=== PATIENT | female | born 1975 | race Caucasian/White ===

== ENCOUNTER 2018-08-06 06:15 | Day surgery (SDC) | payer BC ==
[~2018-08-06 06:15] MED LIST: Buffered Lidocaine 0.9% SYRIN* 5 ML/SYR SYRINGE INTRADERM ONE
[2018-08-06] MEDS ORDERED: Clindamycin 900 MG/D5W BAG(*) 900 MG/50 ML BAG IVPB ONE (06:39)
[2018-08-06] MEDS ORDERED: Lidocaine 2% PF * 5 ML VIAL ONE (07:02)
[2018-08-06] MEDS ORDERED: Bupivacaine 0.5% SDV PF* 30ML VIAL ONE (07:03)
[2018-08-06] MEDS ORDERED: Midazolam* 1 MG/ML 5 ML VIAL (5 MG) ONE (07:22)
[2018-08-06] MEDS ORDERED: fentaNYL* 50 MCG/ML 2 ML VIAL (100 MCG VIAL) ONE (07:34)
[2018-08-06] MEDS ORDERED: Midazolam* 1 MG/ML 2 ML VIAL (2 MG) ONE (07:45)
[2018-08-06] MEDS ORDERED: Propofol* 10 MG/ML 20 ML BTL IV PUSH ONE (07:59)
[2018-08-06] MEDS ORDERED: Dexamethasone IV* 4 MG/ML 1 ML (4 MG) ONE ×2 (07:59)
[2018-08-06] MEDS ORDERED: Naloxone* 0.4 MG/ML 1 ML VIAL IV PRN (08:13)
[2018-08-06] MEDS ORDERED: oxyCODONE/Acetamin 5/325 MG* TAB PO PRN (08:13)
[2018-08-06] MEDS ORDERED: fentaNYL* 50 MCG/ML 2 ML VIAL (100 MCG VIAL) IV PRN (08:13)
[2018-08-06 08:52] VITALS: BP 131/87
--- NOTE | 2018-08-06 09:13 | OP ---
Operative Report - Blank - Operative Report Date of Operation: 08/06/18 Note: PATIENT: Reyna Roper DATE OF : 1975 DATE OF SURGERY: 08/06/2018 SURGEON: Dov Cornell MD HAMMER ADJUSTER: GERRY Biswas, whos assistance was necessary for positioning, retraction, help with instrumentation, and closure. ANESTHESIOLOGIST: Dr. Hardin PREOPERATIVE DIAGNOSIS: Right foot hallux rigidus POSTOPERATIVE DIAGNOSIS: Right foot hallux rigidus OPERATION: Right foot first metatarsophalangeal joint cheilectomy with placement of Cartiva implant ANESTHESIA: MAC IMPLANTS: 10mm Cartiva implant TOURNIQUET TIME: Less than one hour with an ankle Esmarch tourniquet. SPECIMENS: None ESTIMATED BLOOD LOSS: Minimal COMPLICATIONS: none STATUS: Stable from the operating room to the recovery room and then home. INDICATIONS FOR PROCEDURE: Reyna has had persistent pain from hallux rigidus, refractory to extensive conservative measures. Both operative and non-operative treatment alternatives were reviewed. Further, the nature and risks of surgery were reviewed in careful detail, in the office as well as the pre-operative holding area. Our discussions regarding the risks of surgery included, but were not limited to, infection, wound problems, nerve injury, neuroma, RSD, persistent symptoms, blood clot, fracture, need for further surgery, need for fusion, adverse reaction to the implant, failure of the surgery, and even the remote chance of catastrophic complication, including loss of limb. DESCRIPTION OF PROCEDURE: The patient was seen in the preoperative holding unit and informed written consent was obtained. The appropriate extremity was marked. The patient was then brought to the operating room and carefully positioned on the operating room table. Anesthesia was induced. All bony prominences were padded with great care. A chlorhexidine based pre-scrub was performed followed by a chloraprep prep and drape in standard sterile fashion. A surgical safety pause was then conducted in which we confirmed the appropriate patient, extremity, planned procedure, availability of equipment, indication and administration of prophylactic antibiotics, and DVT prophylaxis in the form of a compression boot on the non-surgical extremity. I began by placing a an ankle esmarch tourniquet. I then made an incision dorsally overlying the first MTP joint. I carried the dissection down through the soft tissue and mobilized the EHL tendon laterally. I then came sharply down to the level of the first MTP joint. I released around the medial aspects and lateral aspects of the joint to expose the metatarsal head and the base of the proximal phalanx. We had excellent visualization. There were arthritic changes present. Osteophytes that were present on the dorsal aspect of the proximal phalanx and at the dorsal aspect of the metatarsal head were removed with a rongeur. Care was taken to preserve adequate dorsal bone stock for insertion and stability of the implant. The MTP joint was then checked for range of motion and showed improvement over what was present preoperatively. The MTP joint was then plantar flexed to allow for visualization of the entirety of the first metatarsal head. There was complete loss of cartilage dorsal to the equator. The sizing/aiming guide for the implant were then centered on the metatarsal head. The guidewire was then advanced into the metatarsal head through the cannulation of the aiming guide. The aiming guide was then removed. Placement of the guidewire was confirmed. The cannulated drill was then used to drill the cavity for the implant. This was done with cold irrigation. The drill was advanced until the guard was flush with the surrounding metatarsal head surface. The drill and guidewire were then removed. Irrigation was performed followed by removal of any bone debris. The implant was then removed from the sterile packaging using smooth forceps. The introducer was then moistened with sterile saline. The implant was then inserted into the introducer tube at the wider end. The flat end of the implant was facing downwards during introduction. Using the small flat end of the placer , the implant was then brought to the distal end of the introducer tube. This was confirmed visually. The distal end of the introducer tube was then placed against the recipient site cavity. The placer was then carefully advanced into the introducer tube to deliver the implant into the metatarsal head recipient cavity. The introducer tube was then removed and it was confirmed that the implant sat approximately 1-2 mm proud from the surrounding metatarsal head. The joint was then copiously irrigated and all remaining debris removed. The joint was then reduced and range of motion testing was performed showing an improvement from what was seen preoperatively. The wounds were copiously irrigated and meticulously closed in layers utilizing 3-0 Monocryl and 3-0 nylon. A sterile dressing was then applied. The patient was then awakened from anesthesia and transferred to the recovery room in stable condition. There were no complications. All needle and sponge counts were correct at the end of the case. ATTESTATION: I attest I was present and scrubbed and performed the critical portions of the procedure myself. POSTOPERATIVE PLAN: The patient will remain heel weightbearing in a postop shoe for anticipated duration of 2 weeks. Followup will be in 2 weeks for likely suture removal and Steri-Strip application.
== END 2018-08-06 08:53 | disposition home or self-care (01) ==
LOC: OR 06:15
PROVIDERS: ATTEND Orthopaedic Surgery
DX: M20.21 Hallux rigidus, right foot (principal); Z86.718 Personal history of other venous thrombosis and embolism; I10 Essential (primary) hypertension; J45.909 Unspecified asthma, uncomplicated; K51.90 Ulcerative colitis, unspecified, without complications
CPT/HCPCS: 81025; C1776; J1100; J2250; J2704; J3010

== ENCOUNTER 2018-12-22 15:58 | Emergency (ER) | payer BC ==
--- OUTSIDE RECORDS SUMMARY | 2018-12-22 16:24 | XMS REPORT | Continuity of Care Document ---
:1975 External Reference #:[id number] Author Name Roslyn Larose Care Team Providers Name Role Phone Lobo Pedro M.D. Primary Care Physician Unavailable Payers Date Identification Numbers Payment Provider Subscriber Policy Number: [id number] [employer] Facets Reyna Roper PayID: [id number] [address] [address] [place] [address] Advance Directives Description No Information Available Problems Date Description Provider Status Onset: 05/12/2018 Acquired hallux rigidus Dov Cornell MD Active Onset: 09/07/1990 Chronic ulcerative pancolitis J Luis Coburn MD Active Note: Before ulcerative colitis was lacking is the diagnosis she took metronidazole for several months (refills had been given) and this resulted in a neuropathy that fortunately resolved over a year. She then took gabapentin flared off it and was placed on Asacol until renal damage was detected and the Asacol became the leading suspect. 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 ETOH Use Never used alcohol Tobacco Use Start: Unknown Patient has never smoked Smoking Status Reviewed: 12/22/18 Patient has never smoked Allergies, Adverse Reactions, Alerts Date Description Reaction Status Severity Comments 07/25/2015 Penicillin Active 07/25/2015 Sulfa Antibiotics Active 07/25/2015 Erythromycin Active 07/25/2015 Ceclor Active Medications Medication Date Status Form Strength Qnty SIG Indications Ordering Provider Joi Active Tablets 10mg 1 by mouth Unknown /0000 every day Pulmicort Active Unknown Fluticasone Active Suspension 50mcg/Act 2 sprays Unknown Propionate each nostril daily as needed Probiotic Active Unknown / Zyrtec Allergy Active Unknown Entocort Ec Active Caps DR 3mg 90cap 3 tablets by Sierra / Part s mouth daily DELMY [place] W F Align Active Unknown Torsemide Active 20mg daily Unknown Carvedilol Active Tablets 25mg 1 tab by Unknown mouth twice a day Spironolactone Active Tablets 50mg 1 by mouth Unknown every day Suprep Bowel 09/09 Hx Solution 17.5-3.13 1unit take J Luis Wall Prep Kit -1.6GM/17 s according to Almas, - 7ML your MD 10/27 physician's instructions the day before your procedure. split the dose as directed. Xarelto 08/06 Hx Tablets 10mg 14tab take 1 tab Dov s per day x 2 Aneta, - weeks 09/03 Oxycodone HCL 08/06 Hx Capsules 5mg 15cap 1 - 2 tabs Dov s by mouth Kenyatta Cornell every 4 - 6 09/06 hours needed pain Potassium Hx Unknown Chloride ER / - 07/14 Metoprolol Hx Unknown Tartrate /0000 - 07/14 Nifedipine ER Hx Unknown /0000 - 07/14 Amlodipine Hx Tablets 5mg 1 by mouth Unknown Besylate /0000 every day - 12/15 Immunizations Description No Information Available Vital Signs Date Vital Result Comment 12/22/2018 1:21pm Height 66 inches Weight 170.00 lb Heart Rate 76 /min BP Systolic 120 mmHg BP Diastolic 82 mmHg Respiratory Rate 16 /min Pain Level 3 BMI (Body Mass Index) 27.4 kg/m2 2018 4:26pm Height 66 inches 5'6" Weight 173.00 lb Heart Rate 70 /min BP Systolic 112 mmHg BP Diastolic 76 mmHg Respiratory Rate 18 /min Body Temperature 99.1 F O2 % BldC Oximetry 100 % BMI (Body Mass Index) 27.9 kg/m2 11/04/2018 3:32pm Height 66 inches 5'6" Weight 170.00 lb Heart Rate 68 /min Respiratory Rate 14 /min Body Temperature 96.9 F Pain Level 1 BMI (Body Mass Index) 27.4 kg/m2 09/23/2018 3:16pm Height 66 inches 5'6" Weight 170.00 lb BP Systolic 128 mmHg BP Diastolic 86 mmHg Body Temperature 98.1 F Pain Level 6 BMI (Body Mass Index) 27.4 kg/m2 09/07/2018 3:35pm Height 66 inches 5'6" Weight 171.38 lb Heart Rate 72 /min BP Systolic 135 mmHg BP Diastolic 89 mmHg Respiratory Rate 16 /min Pain Level 0 O2 % BldC Oximetry 100 % BMI (Body Mass Index) 27.7 kg/m2 08/19/2018 3:47pm Height 66 inches 5'6" Weight 160.00 lb Heart Rate 64 /min BP Systolic 148 mmHg BP Diastolic 90 mmHg Body Temperature 97.7 F BMI (Body Mass Index) 25.8 kg/m2 07/15/2018 3:52pm Height 66 inches 5'6" Heart Rate 52 /min Respiratory Rate 12 /min Body Temperature 97.1 F Pain Level 7 05/12/2018 1:05pm Height 66 inches 5'6" Weight 160.00 lb Heart Rate 60 /min Respiratory Rate 16 /min Body Temperature 97.7 F Pain Level 6 BMI (Body Mass Index) 25.8 kg/m2 07/25/2015 2:53pm Height 66 inches 5'6" Weight 146.00 lb Heart Rate 83 /min BP Systolic 127 mmHg BP Diastolic 87 mmHg BMI (Body Mass Index) 23.6 kg/m2 Results Test Date Facility Test Result H/L Range Note Laboratory test 11/02/2018 [facility] Surgical SEE RESULT 1 , [address] [address] [phone] [id number] 2 SEE RESULT BELOW Name: REYNA ROPER : [address]: J Luis Coburn MD Acct: [id number] Unit: [id number] AGE: 42 Location: ENDOC Re11/02/18 SEX: F Status: DEP REF SPEC: [id number] MYLES: 11/02/18-[address]: J Luis Coburn MD REQ: [id number] RECD: 11/02/18 STATUS: OSIEL LUNA DR: Lobo Pedro MD _ ORDERED: LEVEL 4/7 COMMENTS: [id number] FINAL DIAGNOSIS 1. Colon, right, biopsy: -- Mild chronic, inactive colitis. -- Dysplasia is absent. 2. Colon, hepatic flexure, biopsy: -- Benign colonic mucosa with no significant pathologic abnormalities. 3. Colon, transverse, biopsy: -- Benign colonic mucosa with no significant pathologic abnormalities. 4. Colon, descending, biopsy: -- Mild chronic, inactive colitis. -- Dysplasia is absent. 5. Colon, descending, biopsy: -- Hyperplastic polyp. 6. Colon, sigmoid, biopsy: -- Benign colonic mucosa with no significant pathologic abnormalities. 7. Colon, rectum, biopsy: -- Benign colonic mucosa with no significant pathologic abnormalities. COMMENT: Histologic sections from throughout the colon show predominantly normal mucosa with occasional areas of mild crypt architectural distortion. There is no evidence of active colitis. Dysplasia is absent. The findings are compatible with quiescent ulcerative colitis. CONTINUED ON NEXT PAGE DEPARTMENT OF PATHOLOGY, [address] [place] [address] Jay Chapa M.D. Director JARAD # [id number] RUN DATE: 11/03/18 [facility] LAB LIVE PAGE 2 Patient: REYNA ROPER [id number] (Continued) CLINICAL HISTORY (Continued) CLINICAL HISTORY Screening/Surveillance for malignancy in asymptomatic patient. POST-OPERATIVE DIAGNOSIS Colonoscopy: to cecum with ease; all normal, no colitis. Conclusion/Plan: sigmoid nodule; normal otherwise; history of ulcerative colitis GROSS DESCRIPTION 1. The specimen is received in formalin labeled, Right Colon Biopsies, and consists of two diaz-pink irregular to polypoid soft tissue fragments measuring 0.2 x 0.2 x 0.1 cm and 0.3 x 0.3 x 0.2 cm which are submitted entirely in one cassette. 2. The specimen is received in formalin labeled, Hepatic Flexure Biopsies, and consists of two diaz-pink irregular soft tissue fragments measuring 0.3 x 0.1 x 0.1 cm and 0.4 x 0.2 x 0.1 cm which are submitted entirely in one cassette. 3. The specimen is received in formalin labeled, Transverse Colon Biopsies , and consists of two diaz-pink irregular soft tissue fragments measuring 0.3 by up to 0.2 x 0.1 cm and 0.6 x 0.2 x 0.1 cm which are submitted entirely in one cassette. 4. The specimen is received in formalin labeled, Descending Colon Biopsies , and consists of three diaz-pink irregular soft tissue fragments ranging from 0.2 x 0.2 x 0.1 cm to 1.0 x 0.1 x 0.1 cm which are submitted entirely in one cassette. 5. The specimen is received in formalin labeled, Descending Colon Polyp, and consists of three diaz-pink irregular soft tissue fragments ranging from 0.3 x 0.2 x 0.1 cm to 0.7 x 0.2 x 0.1 cm which are submitted entirely in one cassette. 6. The specimen is received in formalin labeled, Sigmoid Colon Biopsies, and consists of two diaz-pink irregular soft tissue fragments measuring 0.3 x 0.2 x 0.1 cm and 0.8 x 0.2 x 0.1 cm which are submitted entirely in cassettes. 7. The specimen is received in formalin labeled, Rectal Biopsies, and consists of two diaz-pink irregular soft tissue fragments averaging 0.3 x 0.2 x 0.1 cm which are submitted entirely in one cassette. CONTINUED ON NEXT PAGE DEPARTMENT OF PATHOLOGY, [address] [place] [address] Jay Chapa M.D. Director [facility] # [id number] RUN DATE: 11/03/18 [facility] LAB LIVE PAGE 3 Patient: REYNA ROPER [id number] (Continued) GROSS DESCRIPTION (Continued) Signed by and Reported on: Ashley Torre MD 11/03/18 1023 END OF REPORT DEPARTMENT OF PATHOLOGY, [address] [place] [address] Jay Chapa M.D. Director [facility] # [id number] Procedures Date Code Description Status 11/02/2018 80452 Colonoscopy Flexible Remove Tumor/Polyp/Lesion Snare Completed Technique 11/02/2018 14716889 Colonoscopy Completed 09/23/2018 [id number] Mammogram Completed 08/06/2018 19550 Hallux Rigidus Correction Release MTP With Implant Completed 08/06/2018 06655 Hallux Rigidus Correction Release MTP With Implant Completed 08/13/2011 [id number] Colonoscopy Completed 06/17/2007 84480691 Colonoscopy Completed 06/27/2004 16463711 Colonoscopy Completed 03/05/2001 [id number] Colonoscopy Completed Encounters Type Date Location Provider Dx Diagnosis Office Visit 09/07/2018 [facility] Gastroenterology J Luis Wall K51.00 Ulcerative 3:15p MD Almas (chronic) pancolitis without complications 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 Office Visit 05/12/2018 Sparkle Cornell M20.21 Hallux rigidus, 1:00p Services Of right lindy [facility] Office Visit 07/25/2015 Orthopedic Mayur Young, S73.102A Unspecified 2:40p Services Of Annie sprain of left C.M.A. hip, initial encounter Plan of Treatment Future Appointment(s):02/17/2019 3:30 pm - Dov Cornell MD at [facility]02/18/2019 3:45 pm - J Luis Coburn MD at [facility] Ahnuuewdlvrtbonj39/09/2019 10:45 am - Dov Cornell MD at [facility]12/22/2018 - Dov Cornell, MDM20.21 Hallux rigidus, right footR60.0 Localized edemaNew Xrays:Venous Doppler Lower Left Ext, Ordered: 12/22/18Follow up:Follow Up: 2 months
--- OUTSIDE RECORDS SUMMARY | 2018-12-22 16:24 | XMS REPORT | Continuity of Care Document ---
:1975 External Reference #:[id number] Author Name Ashly Smithhne Care Team Providers Name Role Phone Lobo Pedro M.D. Primary Care Physician Unavailable Payers Date Identification Numbers Payment Provider Subscriber Policy Number: [id number] BS Facets Reyna Roper PayID: [id number] [address] [address] [place] [address] Advance Directives Description No Information Available Problems [...] leading suspect. 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 Never used alcohol Tobacco Use Start: Unknown Patient has never smoked Smoking Status Reviewed: 12/21/18 Patient has never smoked Allergies, Adverse Reactions, Alerts Date Description Reaction Status Severity Comments 07/25/2015 Penicillin Active 07/25/2015 Sulfa Antibiotics Active 07/25/2015 Erythromycin Active 07/25/2015 Ceclor Active Medications Medication Date Status Form Strength Qnty SIG Indications Ordering Provider Singulair 00 Active Tablets 10mg 1 by mouth Unknown /0000 every day Pulmicort 00/00 Active Unknown Fluticasone Active Suspension 50mcg/Act 2 sprays Unknown Propionate each nostril daily as needed Probiotic Active Unknown Zyrtec Allergy Active Unknown Entocort Ec Active [...] Hx Solution 17.5-3.13 1unit take J Luis Bass -1.6GM/17 s according to Almas, - 7ML your 10/27 physician's /2018 instructions the day before your procedure. split the dose as directed. Xarelto 08/06 Hx Tablets 10mg 14tab take 1 tab Dov s per day x 2 Aneta, - jossue MOSER 09/03 Oxycodone HCL 08/06 Hx Capsules 5mg 15cap 1 - 2 tabs Dov s by mouth Aneta - every 4 - 6 09/06 hours needed pain Potassium Hx Unknown Chloride ER / - 07/14 Metoprolol Hx Unknown Tartrate /0000 - 07/14 Nifedipine ER Hx Unknown /0000 - 07/14 Amlodipine Hx Tablets 5mg 1 by mouth Unknown Besylate / every day - 12/15 Immunizations Description No Information Available Vital Signs Date Vital Result Comment 2018 4:26pm Height 66 inches 5'6" Weight [...] Result H/L Range Note Laboratory test 11/02/2018 [facility] Surgical SEE RESULT 1 , [address] [place] [address] [phone] [id number] 2 SEE RESULT BELOW Name: REYNA ROPER : [address]: J Luis Coburn MD Acct: [id number] Unit: [id number] AGE: 42 Location: ENDOCEC Re11/02/18 SEX: F Status: DEP REF SPEC: [id number] MYLES: 11/02/18-1138 [facility] DR: J Luis Coburn MD REQ: [id number] RECD: 11/02/181547 STATUS: OSIEL LUNA DR: Lobo Pedro MD _ ORDERED: LEVEL 4/7 COMMENTS: [id number] FINAL DIAGNOSIS 1. Colon, right, biopsy: -- [...] CONTINUED ON NEXT PAGE DEPARTMENT OF PATHOLOGY, [address] [place] [address] Jay Chapa M.D. Director [facility] # [id number] RUN DATE: 11/03/18 [facility] LAB LIVE PAGE 2 Patient: REYNA ROPER [id number] (Continued) CLINICAL HISTORY (Continued) CLINICAL HISTORY Screening/Surveillance [...] CONTINUED ON NEXT PAGE DEPARTMENT OF PATHOLOGY, [address] [place] [address] Jay Chapa M.D. Director [facility] # [id number] RUN DATE: 11/03/18 [facility] LAB LIVE PAGE 3 Patient: REYNA ROPER [id number] (Continued) GROSS DESCRIPTION (Continued) Signed by and Reported on: Ashley Torre MD 11/03/18 1023 END OF REPORT DEPARTMENT OF PATHOLOGY, [address] [place] [address] Jay Chapa M.D. Director [facility] # [id number] Procedures Date Code Description Status 11/02/2018 37444 Colonoscopy Flexible Remove Tumor/Polyp/Lesion Snare Completed Technique 11/02/2018 62616670 Colonoscopy Completed 09/23/2018 72101357 Mammogram Completed 08/06/2018 12981 Hallux Rigidus Correction Release MTP With Implant Completed 08/06/2018 15302 Hallux Rigidus Correction Release MTP With Implant Completed 08/13/2011 05716662 Colonoscopy Completed 06/17/2007 27265203 Colonoscopy Completed 06/27/2004 11553275 Colonoscopy Completed 03/05/2001 09805957 Colonoscopy Completed Encounters Type Date Location Provider Dx Diagnosis Office Visit 2018 [facility] Gastroenterology J Luis Wall K51.90 Ulcerative colitis, 4:15p MD Almas unspecified, without complications Z79.899 [facility] [place] drug therapy N18.9 Chronic kidney disease, unspecified Office 09/07/2018 [facility] Gastroenterology J Luis Wall K51.00 Ulcerative Visit 3:15p MD [place] (chronic) pancolitis without complications Z79.899 [facility] [place] (current[facility] drug therapy N18.9 Chronic kidney disease, unspecified Office Visit 07/15/2018 Orthopedic Dov Cornell M20.21 Hallux rigidus, 3:45p Services Of right foot [facility] Office Visit 05/12/2018 Sparkle Cornell M20.21 Hallux rigidus, 1:00p Services Of right lindy [facility].M.[facility] Office Visit 07/25/2015 Orthopedic Mayur Young, S73.102A Unspecified 2:40p Services Of Annie sprain of left C.M.A. hip, initial encounter Plan of Treatment Future Appointment(s):02/18/2019 3:45 pm - J Luis Coburn MD at [facility] Qpkisztulpknasja77/26/2019 1:15 pm - Dov Cornell MD at [facility]05/04/2019 10:45 am - Dov Cornell MD at [facility]12/21/2018 - J Luis Coburn MDK51.90 Ulcerative colitis, unspecified, without complicationsNew Labs:CBC Auto Diff, Ordered: 12/21/18Comp Metabolic Panel, Ordered: 12/21/18C Reactive Protein, Ordered: 12/21/18Ferritin, Ordered: 12/21/18Lipase, Ordered: 12/21/18TSH (Thyroid Stim Horm), Ordered: Z79.899 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
[2018-12-22 17:54] LABS: ABS Basophils 0 10^3/ul (0-0.2); ABS Eosinophils 0 10^3/ul (0-0.6); ABS Monocytes 1.2 10^3/ul (0-0.8); ABS Neutrophils 13.8 10^3/ul (1.5-7.7); ABS Nucleated RBC 0 10^3/ul; Eosinophil % 0.3 %; Hematocrit 47 % (35-47); Lymphocyte % 6.3 %; Mean Corpuscular HGB Conc 34 g/dl (31-36); Mean Corpuscular Hemoglobin 32 pg (27-31); Mean Corpuscular Volume 94 fL (80-97); Mean Platelet Volume 8.8 fL (7.4-10.4); Nucleated Red Blood Cells % 0; Platelet Count 140 10^3/ul (150-450); Red Cell Distribution Width 13 % (10.5-15); White Blood Count 16.1 10^3/ul (3.5-10.8)
[2018-12-22 18:06] LABS: Activated Partial Thrombo Time 27.9 seconds (26.0-36.3); INR 1.02 (0.77-1.02)
[2018-12-22 18:12] LABS: ALT 30 U/L (7-52); AST 23 U/L (13-39); Albumin 4.2 g/dL (3.2-5.2); Albumin/Globulin Ratio 1.3 (1-3); Alkaline Phosphatase 58 U/L (34-104); Anion Gap 6 mmol/L (2-11); BUN/Creatinine Ratio 12.4 (8-20); Blood Urea Nitrogen 29 mg/dL (6-24); CO2 Carbon Dioxide 27 mmol/L (22-32); Calcium 9.6 mg/dL (8.6-10.3); Chloride 101 mmol/L (101-111); EGFR African American 27.2 (>60); EGFR Non-African American 22.5 (>60); Globulin 3.2 g/dL (2-4); Glucose 113 mg/dL (70-100); Potassium 3.8 mmol/L (3.5-5.0); Sodium 134 mmol/L (135-145); Total Protein 7.4 g/dL (6.4-8.9)
[2018-12-22 18:18] LABS: HCG Pregnancy < 0.60 mIU/mL
[2018-12-22] MEDS ORDERED: Enoxaparin(*) 80 MG/0.8 ML SYR SUBCUT ONE (21:40)
--- NOTE | 2018-12-22 22:03 | CONSULT ---
Subjective Date of Service: 12/22/18 Interval History: 43 yo F PMH CKD 4 B/L cR ~2, UC who presented to ER after found to have a DVT ( unk leg or position according the the ER provider, presumed proximal) for workup in the settting of mild SOB. VSS no hypoxia on arrival, she rec'd a VQ scan which showed mod prob of PE Medicine is consulted for further guidance Labs show Cr 2.34, close to baseline, mild hyoNA, Trop flat. Pt has a PESI score of 1 which connotes Very Low Risk: 0-1.6% 30-day mortality in this group. Pt states she feels quite well, and able to execute Lovenox on her own. Review of Systems - Measurements Intake and Output: Intake and Output Last 24 Hours 12/20/18 12/21/18 12/22/18 12/23/18 06:59 06:59 06:59 06:59 Weight 173 lb - Review of Systems General Comments: See HPI Objective Vital Signs - 8 hr 12/22/18 12/22/18 12/22/18 16:05 17:14 17:44 Temperature 97.3 F Pulse Rate 85 95 84 Respiratory 17 24 19 Rate Blood Pressure 139/88 136/94 132/87 (mmHg) O2 Sat by Pulse 97 96 97 Oximetry 12/22/18 12/22/18 12/22/18 18:00 18:14 18:44 Temperature Pulse Rate 86 82 80 Respiratory 23 17 20 Rate Blood Pressure 139/91 132/85 (mmHg) O2 Sat by Pulse 97 100 100 Oximetry 12/22/18 12/22/18 12/22/18 19:00 19:14 19:44 Temperature Pulse Rate 81 82 Respiratory 15 23 Rate Blood Pressure 144/86 132/88 (mmHg) O2 Sat by Pulse 99 99 Oximetry 12/22/18 20:23 Temperature Pulse Rate 85 Respiratory 22 Rate Blood Pressure (mmHg) O2 Sat by Pulse 99 Oximetry Appearance: Well woman in NAD Ears/Nose/Mouth/Throat: NL Teeth, Lips, Gums Neck: NL Appearance and Movements; NL JVP Respiratory: Symmetrical Chest Expansion and Respiratory Effort, Clear to Auscultation Cardiovascular: NL Sounds; No Murmurs; No JVD, RRR Abdominal: NL Sounds; No Tenderness; No Distention Lymphatic: No Cervical Adenopathy Skin: No Rash or Ulcers Neurological: Alert and Oriented x 3 Result Diagrams: 12/22/18 17:43 12/22/18 17:43 Assessment/Plan - Billing : 43 yo F PMH CKD 4 B/L cR ~2, UC who presented to ER after found to have a DVT (unk leg or position according the the ER provider, presumed proximal) for workup in the settting of mild SOB. VSS no hypoxia on arrival, she rec'd a VQ scan which showed mod prob of PE 1. VTE: can start tx dose Lovenox renally dosed as below. PESI is 1. In select low-risk patients, may consider outpatient treatment using 1 mg/kg every 12 hours for the remainder of the course after first dose administered in hospital or urgent care center (ACCP [Kearon 2016]; Shantelle 2011; Bong 2010) Trop neg, no signs of hemodynamic compromise. She should follow with primary care to discuss ultimate length of duration for second provoked DVT
--- NOTE | 2018-12-22 22:09 | ED ---
Lower Extremity - HPI Summary HPI Summary: [place] [facility] [place]. Patient has positive DVT from the left femoral vein up into IVC. Patient also complains of cough and episode of chest pain yesterday occurring at rest, midsternal, lasting about 20 minutes. Denies SOB. Patient states she did have some left lower extremity swelling and redness today which was noticed at a routine visit with PCP and patient was sent for ultrasound to rule out DVT. Patient states she has recent history of long car trip 14 hours down to [place] and back. States prior history of blood clot with foot surgery in 2003. No anti- coag. Denies fever, cough, sore throat, SOB, N/V/D, abdominal pain, change in urine, change in BM. Medical history is HTN, asthma, ulcerative colitis, CKD. - History of Current Complaint Chief Complaint: EDExtremityLower Stated Complaint: LEFT LEG PAIN Time Seen by Provider: 12/22/18 16:37 Hx Obtained From: Patient Hx Last Menstrual Period: currently Mechanism Of Injury: Unknown Onset/Duration: Hours Severity Currently: None Pain Intensity: 0 Pain Scale Used: 0-10 Numeric Associated Signs And Symptoms: Positive: Swelling, Redness Able to Bear Weight: Yes - Allergies/Home Medications Allergies/Adverse Reactions: Allergies Allergy/AdvReac Type Severity Reaction Status Date / Time mesalamine Allergy Severe Reports Verified 09/09/18 11:29 "kidney damage" Penicillins Allergy Severe Anaphylatic Verified 09/09/18 11:29 Shock Sulfa (Sulfonamide Allergy Intermediate Rash Verified 09/09/18 11:29 Antibiotics) cefaclor [From [facility]] Allergy Unknown Verified 09/09/18 11:29 Reaction Details erythromycin base AdvReac Intermediate Vomiting Verified 09/09/18 11:29 Home Medications: Home Medications Budesonide CAP(NF) 9 mg PO MOWEFR 12/22/18 [History Confirmed 12/22/18] Budesonide Flexhaler 90 (NF) [Pulmicort Flexhaler 90 mcg/act (NF)] 1 puff INH QPM 12/22/18 [History Confirmed 12/22/18] Carvedilol TAB* [Coreg TAB*] 25 mg PO BID 12/22/18 [History Confirmed 12/22/18] Montelukast Sodium TAB* [Singulair TAB*] 10 mg PO DAILY 12/22/18 [History Confirmed 12/22/18] PMH/Surg Hx/FS Hx/Imm Hx Endocrine/Hematology History: Denies: Hx Diabetes, Hx Thyroid Disease Cardiovascular History: Reports: Hx Hypertension Denies: Hx Pacemaker/ICD, Hx Peripheral Vascular Disease Respiratory History: Reports: Hx Asthma GI History: Reports: Other GI Disorders - ULCERATIVE COLITIS History: Reports: Hx Renal Disease - NEPHRITIS, Other Problems/Disorders - NEPHRITIS Denies: Hx Dialysis Musculoskeletal History: Reports: Hx Arthritis Denies: Hx Rheumatoid Arthritis, Hx Osteoporosis Sensory History: Denies: Hx Cataracts, Hx Contacts or Glasses, Hx Glaucoma, Hx Hearing Aid Opthamlomology History: Denies: Hx Cataracts, Hx Contacts or Glasses, Hx Glaucoma Neurological History: Denies: Hx Headaches, Hx Seizures, Hx Transient Ischemic Attacks (TIA) Psychiatric History: Denies: Hx Anxiety, Hx Depression, Hx Panic Disorder - Cancer History Hx Chemotherapy: No Hx Radiation Therapy: No - Surgical History Surgery Procedure, Year, and Place: tonsils,c-sect, LEFT FOOT EXTRA NAVICULAR BONE REMOVED 07/30 Hx Anesthesia Reactions: No Infectious Disease History: No Infectious Disease History: Denies: Traveled Outside the [place] in Last 30 Days - Social History Alcohol Use: Occasionally Substance Use Type: Reports: None Smoking Status (MU): Never Smoked Tobacco Review of Systems Constitutional: Negative Eyes: Negative ENT: Negative Cardiovascular: Negative Positive: Chest Pain Positive: Cough Gastrointestinal: Negative Genitourinary: Negative Musculoskeletal: Negative Skin: Negative Neurological: Negative Psychological: Normal All Other Systems Reviewed And Are Negative: Yes Physical Exam - Summary Physical Exam Summary: Minimal swelling of left lower extremity versus right. Some mild erythema noted to left thigh. No tenderness to palpation of left lower extremity. PMS intact distally. Lung sounds clear to auscultation bilaterally. Abdomen soft nontender. Triage Information Reviewed: Yes Vital Signs On Initial Exam: Initial Vitals Temp Pulse Resp BP Pulse Ox 97.3 F 85 17 139/88 97 12/22/18 16:05 12/22/18 16:05 12/22/18 16:05 12/22/18 16:05 12/22/18 16:05 Vital Signs Reviewed: Yes Appearance: Positive: Well-Appearing Skin: Positive: Warm Head/Face: Positive: Normal Head/Face Inspection Eyes: Positive: Normal Neck: Positive: Supple Respiratory/Lung Sounds: Positive: Clear to Auscultation Cardiovascular: Positive: Normal Abdomen Description: Positive: Nontender Musculoskeletal: Positive: Normal Neurological: Positive: Normal Psychiatric: Positive: Normal AVPU Assessment: Alert - Reyes Coma Scale Best Eye Response: 4 - Spontaneous Best Motor Response: 6 - Obeys Commands Best Verbal Response: 5 - Oriented Coma Scale Total: 15 Diagnostics - Vital Signs Vital Signs Temp Pulse Resp BP Pulse Ox 12/22/18 20:23 85 22 99 12/22/18 19:44 132/88 12/22/18 19:14 82 23 144/86 99 12/22/18 19:00 81 15 99 12/22/18 18:44 80 20 132/85 100 12/22/18 18:14 82 17 139/91 100 12/22/18 18:00 86 23 97 12/22/18 17:44 84 19 132/87 97 12/22/18 17:14 95 24 136/94 96 12/22/18 16:05 97.3 F 85 17 139/88 97 - Laboratory Lab Results: Lab Results 12/22/18 12/22/18 12/22/18 Range/Units 17:43 17:43 17:43 WBC 16.1 H (3.5-10.8) 10^3/ul RBC 5.00 (4.00-5.40) 10^6/ul Hgb 16.0 (12.0-16.0) g/dl Hct 47 (35-47) % MCV 94 (80-97) fL MCH 32 H (27-31) pg MCHC 34 (31-36) g/dl RDW 13 (10.5-15) % Plt Count 140 L (150-450) 10^3/ul MPV 8.8 (7.4-10.4) fL Neut % (Auto) 85.3 % Lymph % (Auto) 6.3 % Rich % (Auto) 7.8 % Eos % (Auto) 0.3 % Baso % (Auto) 0.3 % Absolute Neuts (auto) 13.8 H (1.5-7.7) 10^3/ul Absolute Lymphs (auto) 1.0 (1.0-4.8) 10^3/ul Absolute Monos (auto) 1.2 H (0-0.8) 10^3/ul Absolute Eos (auto) 0 (0-0.6) 10^3/ul Absolute Basos (auto) 0 (0-0.2) 10^3/ul Absolute Nucleated RBC 0 10^3/ul Nucleated RBC % 0 INR (Anticoag Therapy) 1.02 (0.77-1.02) APTT 27.9 (26.0-36.3) seconds Sodium 134 L (135-145) mmol/L Potassium 3.8 (3.5-5.0) mmol/L Chloride 101 (101-111) mmol/L Carbon Dioxide 27 (22-32) mmol/L Anion Gap 6 (2-11) mmol/L BUN 29 H (6-24) mg/dL Creatinine 2.34 H (0.51-0.95) mg/dL Est GFR ( Amer) 27.2 (>60) Est GFR (Non-Af Amer) 22.5 (>60) BUN/Creatinine Ratio 12.4 (8-20) Glucose 113 H (70-100) mg/dL Lactic Acid (0.5-2.0) mmol/L Calcium 9.6 (8.6-10.3) mg/dL Magnesium 2.0 (1.9-2.7) mg/dL Total Bilirubin 0.80 (0.2-1.0) mg/dL AST 23 (13-39) U/L ALT 30 (7-52) U/L Alkaline Phosphatase 58 (34-104) U/L Troponin I 0.00 (<0.04) ng/mL B-Natriuretic Peptide (<=100) pg/mL Total Protein 7.4 (6.4-8.9) g/dL Albumin 4.2 (3.2-5.2) g/dL Globulin 3.2 (2-4) g/dL Albumin/Globulin Ratio 1.3 (1-3) Beta HCG, Quant < 0.60 mIU/mL 12/22/18 12/22/18 12/22/18 Range/Units 17:43 17:43 20:58 WBC (3.5-10.8) 10^3/ul RBC (4.00-5.40) 10^6/ul Hgb (12.0-16.0) g/dl Hct (35-47) % MCV (80-97) fL MCH (27-31) pg MCHC (31-36) g/dl RDW (10.5-15) % Plt Count (150-450) 10^3/ul MPV (7.4-10.4) fL Neut % (Auto) % Lymph % (Auto) % Rich % (Auto) % Eos % (Auto) % Baso % (Auto) % Absolute Neuts (auto) (1.5-7.7) 10^3/ul Absolute Lymphs (auto) (1.0-4.8) 10^3/ul Absolute Monos (auto) (0-0.8) 10^3/ul Absolute Eos (auto) (0-0.6) 10^3/ul Absolute Basos (auto) (0-0.2) 10^3/ul Absolute Nucleated RBC 10^3/ul Nucleated RBC % INR (Anticoag Therapy) (0.77-1.02) APTT (26.0-36.3) seconds Sodium (135-145) mmol/L Potassium (3.5-5.0) mmol/L Chloride (101-111) mmol/L Carbon Dioxide (22-32) mmol/L Anion Gap (2-11) mmol/L BUN (6-24) mg/dL Creatinine (0.51-0.95) mg/dL Est GFR ( Amer) (>60) Est GFR (Non-Af Amer) (>60) BUN/Creatinine Ratio (8-20) Glucose (70-100) mg/dL Lactic Acid 0.9 (0.5-2.0) mmol/L Calcium (8.6-10.3) mg/dL Magnesium (1.9-2.7) mg/dL Total Bilirubin (0.2-1.0) mg/dL AST (13-39) U/L ALT (7-52) U/L Alkaline Phosphatase (34-104) U/L Troponin I 0.00 (<0.04) ng/mL B-Natriuretic Peptide 19 (<=100) pg/mL Total Protein (6.4-8.9) g/dL Albumin (3.2-5.2) g/dL Globulin (2-4) g/dL Albumin/Globulin Ratio (1-3) Beta HCG, Quant mIU/mL Result Diagrams: 12/22/18 17:43 12/22/18 17:43 Lab Statement: Any lab studies that have been ordered have been reviewed, and results considered in the medical decision making process. Lower Extremity Course/Dx - Course Course Of Treatment: Patient sent [place] [facility] [place]. Patient has positive DVT from the left femoral artery up into IVC. Patient also complains of cough and episode of chest pain yesterday occurring at rest, midsternal, lasting about 20 minutes. Denies SOB. Patient states she did have some left lower extremity swelling and redness today which was noticed at a routine visit with PCP and patient was sent for ultrasound to rule out DVT. Patient states she has recent history of long car trip 14 hours down to [place] and back. States prior history of blood clot with foot surgery in 2003. No anti-coag. Denies fever, cough, sore throat, SOB, N/V/D, abdominal pain, change in urine, change in BM. Medical history is HTN, asthma, ulcerative colitis, CKD. Physical exam:Minimal swelling of left lower extremity versus right. Some mild erythema noted to left thigh. No tenderness to palpation of left lower extremity. PMS intact distally. Lung sounds clear to auscultation bilaterally. Abdomen soft nontender. Ultrasound reading unavailable at this time. DVT believed to be from left femoral up into IVC. Vital signs within normal limits. Creatinine 2.4, GFR 22. Labs otherwise unremarkable. CTA cannot be completed due to kidney function. VQ scan suggests intermediate to high risk of PE. EKG sinus rhythm. Chest x-ray unremarkable. Troponin x 2 negative. Discussed patient with hospitalist who agrees patient can be discharged with instructions on how to administer Lovenox subcutaneous twice daily for 1 week. Follow-up with primary care for further medication. Patient understands and approves of plan. - Diagnoses Provider Diagnoses: DVT (deep venous thrombosis), Pulmonary embolism Discharge - Sign-Out/Discharge Documenting (check all that apply): Patient Departure Patient Received Moderate/Deep Sedation with Procedure: No - Discharge Plan Condition: Stable Disposition: HOME Prescriptions: Enoxaparin Sodium [Lovenox] 80 mg SC BID 7 Days #14 inj Patient Education Materials: Pulmonary Embolism (ED), Deep Vein Thrombosis (ED) Referrals: Lobo Pedro MD [Primary Care Provider] - Additional Instructions: Lovenox 80mg subcutaneous twice daily x 1 week. Then follow up with primary care for PO anticoagulation after. Return to the ED for any new or worsening symptoms. - Billing Disposition and Condition Condition: STABLE Disposition: Home
[2018-12-23 00:27] VITALS: BP 128/90
== END 2018-12-23 00:52 | disposition home or self-care (01) ==
LOC: ED 15:58
DX: I82.412 Acute embolism and thrombosis of left femoral vein (principal); I26.99 Other pulmonary embolism without acute cor pulmonale; I10 Essential (primary) hypertension; Z88.1 Allergy status to other antibiotic agents; Z88.0 Allergy status to penicillin; Z88.2 Allergy status to sulfonamides; Z88.8 Allergy status to other drugs, medicaments and biological substances
CPT/HCPCS: 36415; 71046; 78582; 80053; 83605; 83735; 83880; 84484; 84702; 85025; 85610; 85730; 93005; 96372; 99284; A9540; A9558; J1650

== ENCOUNTER 2019-08-18 19:11 | Emergency (ER) | payer BC ==
--- OUTSIDE RECORDS SUMMARY | 2019-08-18 20:41 | XMS REPORT | Continuity of Care Document ---
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 Allergic asthma without status asthmaticus J Luis Coburn MD Onset: 2012 Embolism from thrombosis of vein of distal J Luis Coburn MD Onset: 2004 lower extremity Note: after left navicular surgery while on BCPs was treated with Lovenox; hyper coag w/u by Dr Pedro; no FHx otherwise as of 2014; Chronic ulcerative pancolitis Will Chavarria MD Onset: 04/08/2019 Social History Type Date Description Comments Sex Unknown Tobacco Use Start: Unknown Patient has never smoked Smoking Status Reviewed: 06/23/19 Patient has never smoked Allergies, Adverse Reactions, Alerts Active Allergies Reaction Severity Comments Date Sulfa Antibiotics 11/12/2012 Penicillin 11/12/2012 Erythromycin 11/12/2012 Ceclor 11/12/2012 Medications Active Medications SIG Qnty Indications Ordering Date Provider Humira Pen inject 1 pens 2units Will Jain 05/10/2019 40mg/0.4ML PNKT every other week MD Deon after induction. Budesonide take three 90caps Jennifer Delcid 11/20/[address] Part capsules by VITO Almaguer mouth every 5 days Align begun 02/11 J Luis Wall 11/12/2012 4mg Capsules MD [place] Pulmicort Flexhaler 2 Sprays Daily Unknown 90mcg/Act Aerosol Carvedilol Unknown 25mg Tablets Eliquis Lobo Pedro MD 5mg Tablets Montelukast Sodium takes it Friday, ta Unknown 10mg Friday, Tablets Friday Spironolactone Take One Tablet Unknown 50mg Tablets By Mouth Every Day Fluticasone Propionate Lobo Pedro MD 50mcg/Act Suspension History Medications Humira Pen-CD/UC/hs inject 2 80 mg 3units Will Chavarria, 05/10/2019 - Starter pens day 1,1 80 MD 06/23/2019 80mg/0.8ML PNKT mg pen day 15 Medications Administered in Office Medication SIG Qnty Indications Ordering Provider Date Injection Adalimumab 40MG Nurse 05/28/2019 (humira) Injection Injection Adalimumab 40MG Nurse 05/28/2019 (humira) Injection Tuberculosis (Intradermal) J Luis Coburn MD 11/12/2012 Injection Immunizations Description No Information Available Vital Signs Date Vital Result Comment 06/23/2019 3:24pm Height 66 inches 5'6" .. Weight 177.00 lb BMI (Body Mass Index) 28.6 kg/m2 04/08/2019 3:35pm Height 66 inches 5'6" .. Weight 171.00 lb BP Systolic 133 mmHg BP Diastolic 89 mmHg Heart Rate 71 /min BMI (Body Mass Index) 27.6 kg/m2 Results Test Date Facility Test Result H/L Range Note Laboratory test 06/01/2019 [facility] [place] D Dimer < 200 ng/mL Normal Less Than 1 finding Quantitative 230 Comp Metabolic 06/01/2019 [facility] [place] Sodium 139 mmol/L Normal 135-145 Panel Potassium 4.2 mmol/L Normal 3.5-5.0 Chloride 107 mmol/L Normal 101-111 Co2 Carbon Dioxide 25 mmol/L Normal 22-32 Anion Gap 7 mmol/L Normal 2-11 Glucose 83 mg/dL Normal 70-100 Blood Urea Nitrogen 28 mg/dL High 6-24 Creatinine 1.95 mg/dL High 0.51-0.95 BUN/Creatinine Ratio 14.4 Normal 8-20 Calcium 9.1 mg/dL Normal 8.6-10.3 Total Protein 6.4 g/dL Normal 6.4-8.9 Albumin 4.1 g/dL Normal 3.2-5.2 Globulin 2.3 g/dL Normal 2-4 Albumin/Globulin Ratio 1.8 Normal 1-3 Total Bilirubin 0.60 mg/dL Normal 0.2-1.0 Alkaline Phosphatase 53 U/L Normal 34-104 Alt 12 U/L Normal 7-52 Ast 16 U/L Normal 13-39 Egfr Non- 27.7 >60 Egfr 33.6 >60 2 Iron & Iron Binding Capacity 06/01/2019 [facility] [place] Iron 93 g/dL Normal 50-212 Unsaturated Iron Binding < 331 g/dL Total Iron Binding Capacity 346 g/dL Normal 250-450 Transferrin 247 mg/dL Normal 203-362 % Iron Saturation 27 % Normal 15-55 CBC Auto Diff 06/01/2019 [facility] [place] White Blood Count 5.4 10^3/uL Normal 3.5- 10.8 Red Blood Count 4.66 10^6/uL Normal 3.70-4.87 Hemoglobin 14.7 g/dL Normal 12.0-16.0 Hematocrit 43 % Normal 35-47 Mean Corpuscular Volume 93 fL Normal 80-97 Mean Corpuscular Hemoglobin 32 pg High 27-31 Mean Corpuscular HGB Conc 34 g/dL Normal 31-36 Red Cell Distribution Width 14 % Normal 10-15 Platelet Count 197 10^3/uL Normal 150-450 Mean Platelet Volume 9.0 fL Normal 7.4-10.4 Abs Neutrophils 3.1 10^3/uL Normal 1.5-7.7 Abs Lymphocytes 1.6 10^3/uL Normal 1.0-4.8 Abs Monocytes 0.5 10^3/uL Normal 0-0.8 Abs Eosinophils 0.1 10^3/uL Normal 0-0.6 Abs Basophils 0.0 10^3/uL Normal 0-0.2 Abs Nucleated RBC 0.0 10^3/uL Granulocyte % 57.5 % Lymphocyte % 30.5 % Monocyte % 9.2 % Eosinophil % 2.1 % Basophil % 0.7 % Nucleated Red Blood Cells % 0.0 Laboratory test finding 06/01/2019 [facility] Ferritin 28.9 ng/mL Normal 11-307 1 Please note: The following may produce a false positive D Dimer test: - Rheumatoid factor greater than 60 IU/ml - Plasma hemoglobin greater than 0.05 gm/dl - Bilirubin greater than 50 mg/dl - Lipids greater than 1000 mg/dl - FDP greater than 20 ug/ml 2 Because ethnic data is not always readily available, this report includes an eGFR for both -Americans and non- Americans. The National Kidney Disease Education Program (NKDEP) does not endorse the use of the MDRD equation for patients that are not between the ages of 18 and 70, are , have extremes of body size, muscle mass, or nutritional status, or are non- or non-. According to the National Kidney Foundation, irrespective of diagnosis, the stage of the disease is based on the level of kidney function: Stage Description GFR(mL/min/1.73 m(2)) 1 Kidney damage with normal or decreased GFR 90 2 Kidney damage with mild decrease in GFR 60-89 3 Moderate decrease in GFR 30-59 4 Severe decrease in GFR 15-29 5 Kidney failure <15 (or dialysis) Procedures Date Code Description Status 05/28/2019 57234 Admin.Injection-Prophylactic Completed Medical Devices Description No Information Available Encounters Type Date Location Provider Dx Diagnosis Office Visit 04/08/2019 Gastroenter[facility] Will Jain K51.00 Ulcerative 3:[facility] Chavarria MD (chronic) pancolitis without complications N28.9 Disorder of kidney and ureter, unspecified Assessments Date Code Description Provider 05/28/2019 K51.00 Ulcerative (chronic) pancolitis without Will D. Lemberg, MD complications 04/08/2019 K51.00 Ulcerative (chronic) pancolitis without Will Chavarria MD complications 04/08/2019 N28.9 Disorder of kidney and ureter, unspecified Will Chavarria MD Plan of Treatment 04/08/2019 - Will Chavarria MDK51.00 Ulcerative (chronic) pancolitis without complicationsComments:We had a very long and extensive conversation next possible treatments for her ulcerative colitis. We discussed Biologics including Remicade Humira Cimzia Entyvio and Xeljanz. She would like to do a little bit more research regarding them. She is going to think them over and then get back to me in the next few weeks. She will call sooner with any questions or [id number] Disorder of kidney and ureter, unspecified Functional Status Description No Information Available Mental Status Description No Information Available Referrals Description No Information Available
--- OUTSIDE RECORDS SUMMARY | 2019-08-18 20:41 | XMS REPORT | Continuity of Care Document ---
:1975 External Reference #:[id number] Author Name Will Chavarria MD Address [facility] [address] Care Team Providers Name Role Phone Lobo Pedro MD Care Team Information Machine [place] Reporter [phone] Tee Posadas MD Care Team Information Machine [place] Reporter [phone] Ayan Singh JR, MD Care Team Information Machine [place] Reporter [phone] Problems Active Problems Provider Date Ulcerative colitis [...] May 28, 2013; followed by Dr Singh ([place]) [id number]; 3.3 level was followed by 2.8 then [...] 90caps Jennifer Delcid 11/20/[address] Bolanos capsules by VITO Almaguer mouth every 5 days Align begun 02/11 J Luis Wall 11/12/2012 4mg Capsules MD [place] Pulmicort Flexhaler 2 Sprays Daily Unknown 90mcg/Act Aerosol Carvedilol Unknown 25mg Tablets Eliquis Lobo Pedro MD 5mg Tablets Montelukast Sodium takes it Friday, tabs Unknown 10mg Friday, Tablets Friday Spironolactone Take One Tablet Unknown 50mg Tablets By Mouth Every Day Fluticasone Propionate Lobo Pedro MD 50mcg/Act Suspension History Medications Humira Pen-CD/UC/hs inject 2 80 mg 3unarsh Chavarria, 05/10/2019 - Starter pens day 1,1 [...] Result H/L Range Note Laboratory test 06/01/2019 [facility] D Dimer < 200 ng/mL Normal Less Than 1 finding Quantitative 230 Comp Metabolic 06/01/2019 [facility] Sodium 139 mmol/L Normal 135-145 Panel Potassium [...] 2 Iron & Iron Binding Capacity 06/01/2019 [facility] Iron 93 g/dL Normal 50-212 Unsaturated Iron Binding < 331 g/dL Total Iron Binding Capacity 346 g/dL Normal 250-450 Transferrin 247 mg/dL Normal 203-362 % Iron Saturation 27 % Normal 15-55 CBC Auto Diff 06/01/2019 [facility] White Blood Count 5.4 10^3/uL Normal 3.5- [...] dialysis) Procedures Date Code Description Status 05/28/2019 51794 Admin.Injection-Prophylactic Completed Medical Devices Description No Information Available Encounters Type Date Location Provider Dx Diagnosis Office Visit 04/08/2019 [facility]ain K51.00 Ulcerative 3:[facility] Chavarria MD (chronic) pancolitis without complications N28.9 Disorder of kidney and ureter, unspecified Assessments Date Code Description Provider 06/23/2019 K51.00 Ulcerative (chronic) pancolitis without Will Chavarria MD complications 05/28/2019 K51.00 Ulcerative (chronic) pancolitis without Will Chavarria MD complications 04/08/2019 K51.00 Ulcerative (chronic) pancolitis without Will Chavarria MD complications 04/08/2019 N28.9 Disorder of kidney and ureter, unspecified Will Chavarria MD Plan of Treatment Future Appointment(s):12/28/2019 3:45 pm - Will [facility] - Will Chavarria MDK51.00 Ulcerative (chronic) pancolitis without complicationsComments:The patient is doing very well. She will continue with her Humira and continue with the budesonide taper. She will call me back with any questions concerns or changes we will need to update blood work in a few months Functional Status Description No Information Available Mental Status Description No Information Available Referrals Description No Information Available
[2019-08-18 20:48] VITALS: BP 133/89
--- NOTE | 2019-08-18 21:16 | UC ---
Lower Extremity/Ankle HPI - HPI Summary HPI Summary: Patient is a 43yo female with PMH of UC and CKD presenting with right dorsal foot pain, bruising, and swelling since yesterday morning. States she "just woke up with it." Denies any known trauma or injury. Patient notes history of blood clot in her left leg in Nov of this year for which she is currently taking eliquis daily. Denies known cause of clot. Denies leg swelling or leg pain in the right leg. Notes chronic leg swelling in the left leg for which she wears compression stockings. Patient describes pain as sharp that is worse with applying pressure and ambulating. Denies radiating pain. States she wore a CAM boot today which help relieve pain. Denies pain at rest. Denies SOB, difficulty breathing, and chest pain. Patient notes prior surgery on her right great toe for arthritis which required silicone implant in the joint. - History of Current Complaint Chief Complaint: UCLowerExtremity Stated Complaint: R FOOT SWELLING Hx Obtained From: Patient Hx Last Menstrual Period: 08/05/19 Onset/Duration: Sudden Onset Severity Currently: Severe Pain Intensity: 7 - Allergies/Home Medications Allergies/Adverse Reactions: Allergies Allergy/AdvReac Type Severity Reaction Status Date / Time mesalamine Allergy Severe Reports Verified 08/18/19 20:49 "kidney damage" Penicillins Allergy Severe Anaphylatic Verified 08/18/19 20:49 Shock Sulfa (Sulfonamide Allergy Intermediate Rash Verified 08/18/19 20:49 Antibiotics) cefaclor [From Ceclor] Allergy Unknown Verified 08/18/19 20:49 Reaction Details erythromycin base AdvReac Intermediate Vomiting Verified 08/18/19 20:49 Home Medications: Home Medications Adalimumab [Humira] 40 mg SUBCUT SEE INSTRUCTIONS 08/18/19 [History Confirmed ] Apixaban* [Eliquis*] 2.5 mg PO BID 08/18/19 [History Confirmed 08/18/19] PMH/Surg Hx/FS Hx/Imm Hx Cardiovascular History: Hypertension GI/ History: Renal Disease, Other - Ulcerative Colitis Other History Of: Anticoagulant Therapy - Surgical History Surgical History: Yes Surgery Procedure, Year, and Place: tonsils,c-sect, LEFT FOOT EXTRA NAVICULAR BONE REMOVED 07/30 - Family History Known Family History: Positive: Unknown, Non-Contributory - Social History Alcohol Use: Occasionally Substance Use Type: None Smoking Status (MU): Never Smoked Tobacco - Immunization History Most Recent Tetanus Shot: Unknown Review of Systems All Other Systems Reviewed And Are Negative: Yes Constitutional: Positive: Negative Respiratory: Positive: Negative. Negative: Shortness Of Breath, Cough Cardiovascular: Positive: Negative. Negative: Palpitations, Chest Pain Gastrointestinal: Positive: Negative Musculoskeletal: Positive: Arthralgia, Edema. Negative: Calf Tenderness, Decreased ROM, Myalgia Neurological: Negative: Paresthesia, Numbness Physical Exam Triage Information Reviewed: Yes Appearance: Well-Appearing, No Pain Distress, Well-Nourished Vital Signs: Initial Vital Signs Temp 97.7 F 08/18/19 20:42 Pulse 65 08/18/19 20:42 Resp 16 08/18/19 20:42 BP 133/89 08/18/19 20:42 Pulse Ox 100 08/18/19 20:42 Vital Signs Reviewed: Yes Eyes: Positive: Conjunctiva Clear ENT: Positive: Hearing grossly normal Neck: Positive: Supple Respiratory Exam: Normal Respiratory: Positive: Lungs clear, Normal breath sounds, No respiratory distress. Negative: Crackles, Rhonchi, Stridor, Wheezing Cardiovascular Exam: Normal Cardiovascular: Positive: RRR. Negative: Tachycardia Musculoskeletal Exam: Normal Musculoskeletal: Positive: Strength Intact, ROM Intact, Edema @ - R forefoot. no ankle of calf edema, Other: - mild tenderness to palpation of forefoot and proximal second phalanx. negative stephan Neurological: Positive: Alert Psychological: Positive: Age Appropriate Behavior Skin Exam: Other - ecchymosis noted at base of second and third toes. no calf erythema Diagnostics - Radiology R foot Radiology Interpretation Completed By: ED Physician Summary of Radiographic Findings: no acute findings Lower Extremity Course/Dx - Course Course Of Treatment: Discussed with patient that initial read of xray is negative but that official report will be obtained in the morning. Instructed to continue with symptomatic treatment including use of her boot or hard soled shoe. If pain persists, instructed to follow up with her casing cooker with whom she already has an appointment with next week. Patient voiced understanding and agreed with the plan. Also discussed patient with Dr. Bloom who agreed with the plan. - Differential Dx/Diagnosis Provider Diagnosis: Contusion of foot, right Discharge ED - Sign-Out/Discharge Documenting (check all that apply): Patient Departure All imaging exams completed and their final reports reviewed: No - Discharge Plan Condition: Stable Disposition: HOME Patient Education Materials: Foot Contusion (ED) Referrals: Kali Mckinley DPM [Doctor of Podiatric Medicine] - If Needed Lobo Pedro MD [Primary Care Provider] - If Needed Additional Instructions: As discussed, your x-rays were read by the provider who treated her tonight. No fracture was found on the initial read. The official report will be obtained tomorrow morning and you will be notified with any abnormalities. Continue to rest, ice, elevate, and use your boot to relieve pain. Follow-up with your casing cooker if your pain persist. Go to the emergency room if you experience severe pain, coldness or numbness of the foot, or you are unable to bear weight. - Billing Disposition and Condition Condition: STABLE Disposition: Home
== END 2019-08-18 21:46 | disposition home or self-care (01) ==
LOC: UCEAST 19:11
DX: S90.31XA Contusion of right foot, initial encounter (principal); M13.871 Other specified arthritis, right ankle and foot; N18.9 Chronic kidney disease, unspecified; Z79.01 Long term (current) use of anticoagulants; Z88.0 Allergy status to penicillin; Z88.2 Allergy status to sulfonamides; Z88.8 Allergy status to other drugs, medicaments and biological substances; X58.XXXA Exposure to other specified factors, initial encounter; Y92.9 Unspecified place or not applicable
CPT/HCPCS: 99211; G0463